=== PATIENT | female | born 1970 | race Caucasian/White ===

== ENCOUNTER 2020-02-28 21:04 | Emergency (ER) | payer OTHER ==
[2020-02-28] MEDS ORDERED: ASPIRIN 325 MG TAB PO ONE (21:31)
[2020-02-28 21:59] LABS: Basophils % (Auto) 0.5 % (0.0-1.8); Eosinophils # (Auto) 0.1 K/mm3 (0.0-0.4); Hematocrit 42.7 % (30.3-42.9); Hemoglobin 14.2 gm/dl (10.1-14.3); Lymphocytes # (Auto) 2.5 K/mm3 (1.2-5.4); Lymphocytes % (Auto) 32.9 % (13.4-35.0); Mean Corpuscular HGB Conc 33 % (30-34); Mean Corpuscular Volume 83 fl (79-97); Monocytes # (Auto) 0.5 K/mm3 (0.0-0.8); Monocytes % (Auto) 6.7 % (0.0-7.3); Platelet Count 281 K/mm3 (140-440); Red Blood Count 5.15 M/mm3 (3.65-5.03)
[2020-02-28 22:10] LABS: Blood Urea Nitrogen 18 mg/dL (7-17); Hemolysis Index 14
[2020-02-28 22:12] LABS: BUN/Creatinine Ratio 30
[2020-02-28] MEDS ORDERED: POTASSIUM CHLORIDE ER 20 MEQ TAB PO ONE (22:21)
[2020-02-28] MEDS ORDERED: BUTALB/ACETAMINOPHEN/CAFFEINE TAB PO ONE (22:21)
--- NOTE | 2020-02-28 22:22 | XRay Report ---
CHEST 2 VIEWS INDICATION: Chest Pain. COMPARISON: None FINDINGS: Support devices: None. Heart: Within normal limits. Lungs: No acute air space or interstitial disease. Pleura: No significant pleural effusion. No pneumothorax. Additional findings: None. IMPRESSION: 1. No acute findings. Signer Name: Cricket Stephens MD Signed: 02/28/2020 10:17 PM Workstation Name: [id number]
--- NOTE | 2020-02-28 23:25 | Emergency Department Report ---
ED Chest Pain HPI - General Chief Complaint: Chest Pain Stated Complaint: CHEST PAIN Source: patient Mode of arrival: Ambulatory Limitations: No Limitations - History of Present Illness Initial Comments: Patient is a 49-year-old female with history of hypertension who pr esents to the ED with complaint of acute onset persistent right-sided chest wall pain that radiates to the right shoulder persistently for the last 8 hours while heavy lifting at work. Patient states that the pain is worse with any active range of motion of the right arm or right chest wall area. Patient states that she performs heavy lifting at work and that this usually worsens the right shoul xiomy pain. Patient denies fall, traumatic injury, shortness of breath, numbness and tingling or weakness of right arm, dizziness, syncope, change in vision, diaphoresis, nausea and vomiting, palpitations or headache and neck pain. MD Complaint: chest pain (right chest wall pain that radiates to the right shoulder and back), other (right shoulder pain; heavy lifting at work) -: Sudden, hour(s) (8) Onset: during exertion, other (heavy lifting at work) Pain Location: right chest Pain Radiation: RUE, back Severity: moderate Severity scale (0 -10): 4 Quality: aching, sharp Consistency: constant Improves With: rest Worsens With: palpation, movement Context: other (heavy lifting) re: denies: nausea, vomting, dyspnea, sense of impending doom Other Symptoms: denies: cough, fever, syncope, rash, acid taste in mouth, leg swelling, palpitations, burping, other Treatments Prior to Arrival: none Aspirin use within the Past 7 Days: (0) No - Related Data On Oral Contraceptives: No Previous Rx's Medication Instructions Recorded Last Taken Type Metaxalone [Skelaxin] 800 mg PO Q8H PRN #30 tab 02/29/20 Unknown Rx Naproxen 500 mg PO Q12H PRN #30 tablet 02/29/20 Unknown Rx Allergies Allergy/AdvReac Type Severity Reaction Status Date / Time No Known Allergies Allergy Verified 02/28/20 22:08 Heart Score - HEART Score History: Slightly suspicious EKG: Normal Age: 45-65 Risk factors: 1-2 risk factors Troponin: < normal limit HEART Score: 2 - Critical Actions Critical Actions: 0-3 pts:0.9-1.7%risk of adverse cardiac event.Candidate for discharge ED Review of Systems ROS: Stated complaint: CHEST PAIN Other details as noted in HPI Constitutional: denies: chills, fever, malaise, weakness Eyes: denies: eye pain, eye discharge, vision change ENT: denies: ear pain, throat pain, dental pain, hearing loss, congestion Respiratory: denies: cough, shortness of breath, SOB with exertion, SOB at rest, wheezing Cardiovascular: chest pain (right chest wall). denies: palpitations, dyspnea on exertion, orthopnea, edema, syncope, paroxysmal nocturnal dyspnea Endocrine: no symptoms reported Gastrointestinal: denies: abdominal pain, nausea, vomiting, diarrhea, constipation, hematemesis, hematochezia Genitourinary: denies: urgency, dysuria, discharge Musculoskeletal: arthralgia (right shoulder pain). denies: back pain, joint swelling Skin: denies: rash, lesions Neurological: denies: headache, weakness, paresthesias Psychiatric: denies: anxiety, depression Hematological/Lymphatic: denies: easy bleeding, easy bruising ED Past Medical Hx - Past Medical History Previous Medical History?: Yes Hx Hypertension: Yes - Surgical History Past Surgical History?: Yes Additional Surgical History: - Social History Smoking Status: Never Smoker - Medications Home Medications: Home Medications Medication Instructions Recorded Confirmed Last Taken Type Metaxalone [Skelaxin] 800 mg PO Q8H PRN #30 tab 02/29/20 Unknown Rx Naproxen 500 mg PO Q12H PRN #30 tablet 02/29/20 Unknown Rx ED Physical Exam - General Limitations: No Limitations General appearance: alert, in no apparent distress - Head Head exam: Present: atraumatic, normocephalic, normal inspection - Eye Eye exam: Present: normal appearance, PERRL, EOMI Pupils: Present: normal accommodation - ENT ENT exam: Present: normal exam, normal orophraynx, mucous membranes moist, TM's normal bilaterally, normal external ear exam - Neck Neck exam: Present: normal inspection, full ROM. Absent: tenderness, meningi smus, lymphadenopathy, thyromegaly - Respiratory Respiratory exam: Present: normal lung sounds bilaterally, chest wall tenderness (Palpable right shoulder tenderness). Absent: respiratory distress, wheezes, rales, stridor, accessory muscle use, decreased breath sounds, prolonged expiratory - Cardiovascular Cardiovascular Exam: Present: regular rate, normal rhythm, normal heart sounds. Absent: systolic murmur, diastolic murmur, rubs, gallop - GI/Abdominal GI/Abdominal exam: Present: soft, normal bowel sounds. Absent: tenderness, guarding, hyperactive bowel sounds, hypoactive bowel sounds, organomegaly - Extremities Exam Extremities exam: Present: normal inspection, full ROM, tenderness (Palpable right shoulder tenderness with passive and active ROM), normal capillary refill. Absent: pedal edema, joint swelling - Back Exam Back exam: Present: normal inspection, full ROM. Absent: tenderness, CVA tenderness (R), CVA tenderness (L), muscle spasm, paraspinal tenderness, vertebral tenderness - Neurological Exam Neurological exam: Present: alert, oriented X3, CN II-XII intact, normal gait, reflexes normal - Psychiatric Psychiatric exam: Present: normal affect, normal mood - Skin Skin exam: Present: warm, dry, intact, normal color. Absent: rash ED Course Vital Signs 02/28/20 21:25 Temperature 98.5 F Pulse Rate 83 Respiratory 16 Rate Blood Pressure 141/67 O2 Sat by Pulse 98 Oximetry LEWIS score - Lewis Score Age > 65: (0) No Aspirin use within the Past 7 Days: (0) No 3 or more CAD Risk Factors: (0) No 2 or more Angina events in past 24 hrs: (0) No Known CAD with more than 50% Stenosis: (0) No Elevated Cardiac Markers: (0) No ST Deviation Greater than 0.5mm: (0) No LEWIS Score: 0 ED Medical Decision Making - Lab Data Result diagrams: 02/28/20 21:35 02/28/20 21:35 - EKG Data EKG shows normal: sinus rhythm Rate: normal - EKG Data Interpretation: normal EKG 02/29/20 02:01 EKG shows normal sinus rhythm with a ventricular rate of [address] or T wave abnormalities. - Radiology Data Radiology results: report reviewed, image reviewed Findings [facility] [address] [place] [address] XRay Report Signed Patient: TOMMIE BARBOUR MR#: [id number] : 1970 Acct:[id number] Age/Sex: 49 / F ADM Date: 02/28/20 Loc: ED Attending Dr: Ordering Physician: TANNER WARD Date of Service: 02/28/20 Procedure(s): XR chest routine 2V Accession Number(s): [id number] cc: TANNER WARD Fluoro Time In Minutes: CHEST 2 VIEWS INDICATION: Chest Pain. COMPARISON: None FINDINGS: Support devices: None. Heart: Within normal limits. Lungs: No acute air space or interstitial disease. Pleura: No significant pleural effusion. No pneumothorax. Additional findings: None. IMPRESSION: 1. No acute findings. Signer Name: Cricket Stephens MD Signed: 02/28/2020 10:17 PM Workstation Name: [id number] Transcribed By: BRANDIE Dictated By: Cricket Stephens MD Electronically Authenticated By: Cricket Stephens MD Signed Date/Time: 02/28/202216 DD/ 16 TD/TT: - Medical Decision Making This is a 49-year-old female with history of hypertension who presents to the ED with complaint of acute onset persistent right-sided chest wall pain that radiates to the right shoulder persistently for the last 8 hours while heavy lifting at work. Patient states that the pain is worse with any active ra nge of motion of the right arm or right chest wall area. Patient states that she performs heavy lifting at work and that this usually worsens the right shoulder pain. In the ED, patient is alert and oriented x3 and is not in distress. The EKG shows normal sinus rhythm with a ventricular rate of [address] or T wave abnormalities. Chest x-ray shows no acute cardiopulmonary abnormalities or pneumonitis. Lab test results were reviewed and are all nonactionable including the initial and the repeat troponin after 3 hours. Patient was treated for pain and on reevaluation, patient's pain is well controlled medications. Patient's heart score is 1 and is PERC negative per Wells criteria. Patient symptoms are likely due to musculoskeletal strain from heavy lifting at work. Other differential diagnoses were also considered including coronary artery disease, PE, pneumonia, pneumothorax or pleural effusion and dissection. On reevaluation, patient's pain is well controlled medications. Patient was discharged home on pain medications and muscle relaxants and was advised to follow-up with her primary care physician in 5 to 7 days for reevaluation or return to the ED immediately if symptoms get worse. - Differential Diagnosis CAD; PE; Muscle strain; Pneumonia; Costochondritis; Muscle spasm Critical care attestation.: If time is entered above; I have spent that time in minutes in the direct care of this critically ill patient, excluding procedure time. ED Disposition Clinical Impression: Right-sided chest wall pain, Acute costochondritis Right shoulder pain Qualifiers: Chronicity: acute Qualified Code(s): M25.511 - Pain in right shoulder Disposition: TO HOME OR SELFCARE Is pt being admited?: No Does the pt Need Aspirin: No Condition: Stable Instructions: Chest Pain (ED), Costochondritis (ED), Shoulder Sprain (ED), Arthralgia (ED) Additional Instructions: All lab test results, imaging reports are nonactionable. Your symptoms are likely due to musculoskeletal strain of the chest wall. Therefore take medications as advised with food, drink plenty of fluids and follow-up with your primary care physician in 5 to 7 days for reevaluation or return to the ED immediately if symptoms get worse. Prescriptions: Naproxen 500 mg PO Q12H PRN #30 tablet PRN Reason: Pain , Severe (7-10) Metaxalone [Skelaxin] 800 mg PO Q8H PRN #30 tab PRN Reason: Muscle Spasm Referrals: [facility] [Provider Group] - 3-5 Days Time of Disposition: 01:53 Print Language: NIGERIAN
[2020-02-29 02:09] VITALS: BP 129/64
== END 2020-02-29 02:10 | disposition home or self-care (01) ==
LOC: ED 21:04
DX: M94.0 Chondrocostal junction syndrome [Tietze] (principal); M25.511 Pain in right shoulder; I10 Essential (primary) hypertension; Z79.899 Other long term (current) drug therapy
CPT/HCPCS: 36415; 71046; 80048; 84484; 85025; 93005

== ENCOUNTER 2020-05-23 08:00 | Outpatient (CLI) | payer OTHER ==
--- NOTE | 2020-05-24 14:06 | Ultrasound Report ---
ULTRASOUND ABDOMEN, LIMITED (RIGHT UPPER QUADRANT) INDICATION / CLINICAL INFORMATION: RUQ pain. COMPARISON: None FINDINGS: Technically difficult examination secondary to overlying bowel gas, patient body habitus, a nd patient positioning. PANCREAS: Visualized portion shows no significant abnormality. LIVER: Normal size. Heterogeneous attenuation with increased echogenicity suggesting fatty infiltrati on. No focal lesion. GALLBLADDER: No significant abnormality. BILE DUCTS: No significant abnormality. Common bile duct measures 3 mm. FREE FLUID: None. ADDITIONAL FINDINGS: None. IMPRESSION: 1. Findings suggestive of fatty infiltration of the liver. No focal lesion. Signer Name: Trung Wilkins MD Signed: 05/24/2020 2:02 PM Workstation Name: [id number]
== END 2020-05-23 08:01 | disposition home or self-care (01) ==
LOC: SPVWC 08:00
PROVIDERS: ATTEND Internal Medicine Gastroenterology
DX: R10.11 Right upper quadrant pain (principal)
CPT/HCPCS: 76705